=== PATIENT | female | born 1970 | race African-American/Black ===

== ENCOUNTER → 2018-05-14 | Emergency (ER) | payer SELFPAY ==
[~2018-05-14] MED LIST: Acetaminophen 325 MG TAB ONE; Escitalopram Oxalate 20 mg Tablet PO SCH; HALOPERIDOL 5MG TABLET PO SCH; Haloperidol 5 MG TAB PO SCH; Hydrochlorothiazide 25 MG TAB PO SCH; Lisinopril 10 MG TAB PO SCH; Loratadine 10 MG TAB PO SCH; Multivitamin W/ Minerals 1 TAB PO SCH
[2018-05-14 09:57] LABS: #Lymphocytes 1.3 thou/uL (1.20-3.40); #Monocytes 0.3 thou/uL (0.11-0.59); #Neutrophils 2.9 thou/uL (1.40-6.50); %Eosinophils 0.6 % (0.0-10.0); %Lymphocytes 28.2 % (21.0-51.0); %Monocytes 7.3 % (0.0-10.0); Hemoglobin 12.1 g/dL (12.0-16.0); Mean Corpuscular HGB CONC 30.3 g/dL (32.0-36.0); Mean Corpuscular Hemoglobin 22.9 pg (27.0-31.0); Mean Corpuscular Volume 75.7 fL (78.0-98.0); Mean Platelet Volume 10.5 fL (7.4-10.4); Platelet Count 280 thou/uL (130-400); RBC Distribution Width 15.3 % (11.5-14.5); Red Blood Cell (RBC) Count 5.26 mill/uL (4.20-5.40); White Blood Cell (WBC) Count 4.6 thou/uL (4.8-10.8)
[2018-05-14 10:14] LABS: ALT (SGPT) 14 U/L (8-55); AST (SGOT) 25 U/L (5-34); Acetaminophen Less than 6.0 mcg/mL (10.0-30.0); Albumin 4.2 g/dL (3.5-5.0); Alcohol Less than 10 mg/dL (Less than 10); Alkaline Phosphatase 119 U/L (40-150); Anion Gap 16 mmol/L (10-20); BUN (Urea Nitrogen) 11 mg/dL (7.0-18.7); Bilirubin, Total 0.8 mg/dL (0.2-1.2); CK (CPK) 337 U/L (29-168); Calc. Creatinine Clearance 0 mL/min (70-130); Calcium 10.1 mg/dL (7.8-10.44); Carbon Dioxide 23 mmol/L (22-29); Chloride 101 mmol/L (98-107); Estimated GFR-MDRD 71; Globulin 4.2 g/dL (2.4-3.5); Glucose 85 mg/dL (70-105); Potassium 4.3 mmol/L (3.5-5.1); Protein, Total 8.4 g/dL (6.0-8.3); Salicylate Less than 8.0 mg/dL (15.0-30.0); Sodium 136 mmol/L (136-145)
--- NOTE | 2018-05-14 11:36 | CT ---
CT HEAD NONCONTRAST: HISTORY: Altered mental status. FINDINGS: No comparison. There is no evidence of acute intracranial hemorrhage or infarct. The ventricles amie ear normal in size, shape, and position. There is no mass effect or shift of midline structures. The visualized paranasal sinuses remain well aerated. IMPRESSION: No acute intracranial abnormalities are demonstrated. POS: [facility]
[2018-05-14 12:44] LABS: Bilirubin Small (Negative); Blood, Urine Negative (Negative); Glucose, Urine (Dipstick) Negative (Negative); Leukocyte Small (Negative); Nitrite Negative (Negative); Protein, Urine (Dipstick) Negative (Neg-Trace); Urobilinogen 0.2 mg/dL (0.2-1.0); pH, Urine 5.5 (5.0-9.0)
[2018-05-14 12:52] LABS: Clarity Cloudy (Clear)
[2018-05-14 12:53] LABS: Specific Gravity, Urine 1.031 (1.002-1.036)
[2018-05-14 12:55] LABS: Amphetamine Not Detected (NotDetected); Barbiturates Screen Not Detected (NotDetected); Benzodiazepine Screen Not Detected (NotDetected); Cocaine Metabolite Screen Not Detected (NotDetected); Medtox Control Line Valid? VALID (VALID); Medtox Reader # READER 1; Methadone Not Detected (NotDetected); Methamphetamine Not Detected (NotDetected); Opiate Screen Not Detected (NotDetected); Oxycodone Screen Not Detected (NotDetected); Phencyclidine (PCP) Not Detected (NotDetected); THC/Cannabinoid Screen Not Detected (NotDetected); Tricyclic Screen Not Detected (NotDetected)
[2018-05-14 13:09] LABS: Bacteria/HPF 2+ HPF (None Seen)
[2018-05-14 13:10] LABS: Hyaline Casts/LPF 0-3 HYALINE CAST LPF (0-3 Hyaline); RBC/HPF 0-3 HPF (0-3)
[2018-05-14 19:56] LABS: Troponin I Less than 0.010 ng/mL (< 0.028)
[2018-05-17 07:54] LABS: #Lymphocytes 1.1 thou/uL (1.20-3.40); #Monocytes 0.3 thou/uL (0.11-0.59); #Neutrophils 1.3 thou/uL (1.40-6.50); %Basophils 0.5 % (0.0-1.0); %Lymphocytes 39.9 % (21.0-51.0); %Monocytes 11.3 % (0.0-10.0); %Neutrophils 47.3 % (42.0-75.0); Hemoglobin 11.4 g/dL (12.0-16.0); Mean Corpuscular HGB CONC 30.6 g/dL (32.0-36.0); Mean Corpuscular Volume 75.1 fL (78.0-98.0); Mean Platelet Volume 10.5 fL (7.4-10.4); Platelet Count 256 thou/uL (130-400); RBC Distribution Width 15.2 % (11.5-14.5); Red Blood Cell (RBC) Count 4.97 mill/uL (4.20-5.40); White Blood Cell (WBC) Count 2.7 thou/uL (4.8-10.8)
[2018-05-17 08:14] LABS: ALT (SGPT) 13 U/L (8-55); AST (SGOT) 23 U/L (5-34); Albumin 3.7 g/dL (3.5-5.0); Alkaline Phosphatase 106 U/L (40-150); Anion Gap 15 mmol/L (10-20); BUN (Urea Nitrogen) 7 mg/dL (7.0-18.7); Bilirubin, Total 0.8 mg/dL (0.2-1.2); Calc. Creatinine Clearance 0 mL/min (70-130); Calcium 9.7 mg/dL (7.8-10.44); Carbon Dioxide 24 mmol/L (22-29); Chloride 103 mmol/L (98-107); Estimated GFR-MDRD 71; Globulin 3.7 g/dL (2.4-3.5); Glucose 79 mg/dL (70-105); Potassium 3.8 mmol/L (3.5-5.1); Protein, Total 7.4 g/dL (6.0-8.3); Sodium 138 mmol/L (136-145)
--- NOTE | 2018-05-18 13:13 | EKG ---
Test Reason : Blood Pressure : / mmHG Vent. Rate : 067 BPM Atrial Rate : 067 BPM P-R Int : 154 ms QRS Dur : 082 ms QT Int : 422 ms P-R-T Axes : 042 064 046 degrees QTc Int : 445 ms Normal sinus rhythm Normal ECG Confirmed by LICO ASHER DO ([id number]), editor continuity and script GÉNESIS DENIS ([id number]) on 05/18/2018 1:12:57 PM Referred By: Confirmed By:LICO ASHER DO
[2018-05-20 15:01] LABS: #Lymphocytes 1.5 thou/uL (1.20-3.40); #Monocytes 0.4 thou/uL (0.11-0.59); #Neutrophils 1.9 thou/uL (1.40-6.50); %Eosinophils 0.6 % (0.0-10.0); %Lymphocytes 39.3 % (21.0-51.0); %Monocytes 10.3 % (0.0-10.0); %Neutrophils 48.7 % (42.0-75.0); Hemoglobin 10.8 g/dL (12.0-16.0); Mean Corpuscular HGB CONC 30.5 g/dL (32.0-36.0); Mean Corpuscular Volume 75.2 fL (78.0-98.0); Platelet Count 225 thou/uL (130-400); Red Blood Cell (RBC) Count 4.71 mill/uL (4.20-5.40); White Blood Cell (WBC) Count 3.9 thou/uL (4.8-10.8)
== END ==
LOC: ERS 09:19
DX: R45.851 Suicidal ideations (principal); E11.9 Type 2 diabetes mellitus without complications; I10 Essential (primary) hypertension; J45.909 Unspecified asthma, uncomplicated; F32.9 Major depressive disorder, single episode, unspecified; Z79.899 Other long term (current) drug therapy
CPT/HCPCS: 36415; 36416; 70450; 80053; 80306; 80307; 81003; 81015; 82550; 84443; 84484; 85025; 87086; 93005; 96360

== ENCOUNTER 2018-06-13 14:20 | Observation (INO) | payer SELFPAY ==
[2018-06-13 15:02] LABS: #Lymphocytes 1.4 thou/uL (1.20-3.40); #Monocytes 0.4 thou/uL (0.11-0.59); #Neutrophils 2.6 thou/uL (1.40-6.50); %Eosinophils 0.8 % (0.0-10.0); %Lymphocytes 32.6 % (21.0-51.0); %Monocytes 7.9 % (0.0-10.0); %Neutrophils 57.7 % (42.0-75.0); Hemoglobin 10.6 g/dL (12.0-16.0); Mean Corpuscular HGB CONC 31.1 g/dL (32.0-36.0); Mean Corpuscular Hemoglobin 23.1 pg (27.0-31.0); Mean Corpuscular Volume 74.1 fL (78.0-98.0); Mean Platelet Volume 10.3 fL (7.4-10.4); Platelet Count 254 thou/uL (130-400); RBC Distribution Width 14.8 % (11.5-14.5); Red Blood Cell (RBC) Count 4.58 mill/uL (4.20-5.40); White Blood Cell (WBC) Count 4.4 thou/uL (4.8-10.8)
--- NOTE | 2018-06-13 15:21 | RAD ---
SINGLE VIEW CHEST: Date: 06/13/18 COMPARISON: None. HISTORY: Chest pain. FINDINGS: Single view of the chest shows a normal sized cardiomediastinal silhouette. There is no evidence of c onsolidation, mass, or pleural effusion. The bones are unremarkable. IMPRESSION: No evidence of acute cardiopulmonary disease. POS: [facility]
[2018-06-13 15:22] LABS: ALT (SGPT) 14 U/L (8-55); AST (SGOT) 26 U/L (5-34); Albumin 3.9 g/dL (3.5-5.0); Alkaline Phosphatase 107 U/L (40-150); Anion Gap 15 mmol/L (10-20); BUN (Urea Nitrogen) 11 mg/dL (7.0-18.7); Bilirubin, Total 1.5 mg/dL (0.2-1.2); CK (CPK) 268 U/L (29-168); Calc. Creatinine Clearance 0 mL/min (70-130); Calcium 9.6 mg/dL (7.8-10.44); Carbon Dioxide 25 mmol/L (22-29); Chloride 101 mmol/L (98-107); Estimated GFR-MDRD 64; Globulin 3.9 g/dL (2.4-3.5); Glucose 65 mg/dL (70-105); Lipase 22 U/L (8-78); Potassium 4.3 mmol/L (3.5-5.1); Protein, Total 7.8 g/dL (6.0-8.3); Sodium 137 mmol/L (136-145)
[2018-06-13 15:24] LABS: Anisocytosis SLIGHT = 6-15 cells (100X) (0-5/hpf); Hypochromia SLIGHT = 6-15 cells (100X) (0-5/hpf); MDiff Complete? YES; Microcytosis SLIGHT = 6-15 cells (100X) (0-5/hpf); Ovalocytes SLIGHT = 2-5 cells (100X) (0-1/hpf); Platelet Morphology Comment Appears Adequate; Polychromasia SLIGHT = 2-3 cells (100X) (0-2/hpf)
[2018-06-13] MEDS ORDERED: Nitroglycerin 2% Ointment 1 INCH/1 GM Packet ONE (16:29)
[2018-06-13] MEDS ORDERED: Aspirin Chewable 81 MG TAB ONE (16:29)
[2018-06-13 17:31] VITALS: BMI 32.8
[2018-06-13 18:11] LABS: Cardiac Risk 3.8 (Less than 4.5)
[2018-06-13 18:14] LABS: Troponin I Less than 0.010 ng/mL (< 0.028)
[2018-06-13 21:22] LABS: Troponin I Less than 0.010 ng/mL (< 0.028)
[2018-06-13] MEDS ORDERED: Nitroglycerin 0.4 MG TAB (25 Tab Bottle) PO PRN (22:53)
[2018-06-13] MEDS ORDERED: Ondansetron PF 4 MG/2 ML Vial IVP PRN (22:53)
[2018-06-13] MEDS ORDERED: Ondansetron ODT 4 MG TAB PO PRN (22:53)
[2018-06-13] MEDS ORDERED: Acetaminophen 325 MG TAB PO PRN (22:53)
--- NOTE | 2018-06-14 03:01 | HP ---
PRIMARY CARE PHYSICIAN: None. CHIEF COMPLAINT: Chest pressure. HISTORY OF PRESENT ILLNESS: Ms. Domingo is a 47-year-old female with past medical history of hypertension and diabetes mellitus type 2, who had presented to [facility] for chest tightness lasting for the last 3 days. She reports pain is in the substernal area, however, denies any sort of radiation pain. She has denied any fever, chills, any headache, blurred vision, dizziness, any shortness of breath, abdominal pain, nausea, vomiting. She also denies any edema, any weakness, numbness, or tingling down her extremities. She also denies having a PCP at this time. During her initial workup, chest x-ray showed no evidence of acute cardiopulmonary process. Troponin were negative x3. Vital signs remained stable, and EKG showed normal sinus rhythm. It was determined that the patient be admitted under observation, placed on telemetry overnight, and stress test ordered to rule out ACS. REVIEW OF SYSTEMS: All other systems reviewed and found to be negative unless mentioned in HPI. PAST MEDICAL HISTORY: Diabetes mellitus type 2, hypertension, asthma, and glaucoma. PAST SURGICAL HISTORY: Cholecystectomy, section, and right foot surgery. PSYCHIATRIC HISTORY: Significant for depression with a recent psychiatric admission for a history of suicide attempts secondary to overdose. She had denied any suicidal or homicidal ideation at this time. SOCIAL HISTORY: She denies any alcohol, tobacco, or illicit drug use. The patient currently living at the [facility]. KNOWN ALLERGIES: No known drug allergies. HOME MEDICATIONS: 1. Citalopram 20 mg oral once daily. 2. Loratadine 10 mg oral once daily. 3. Hydrochlorothiazide 12.5 mg once daily. 4. Multivitamin oral once daily. 5. Lisinopril 10 mg oral once daily. 6. Haldol 15 mg oral twice daily. PHYSICAL EXAMINATION: VITAL SIGNS: BP 116/64, pulse 80, respirations 15, temperature 98.2 degrees Fahrenheit, O2 saturation 96% on room air. GENERAL: The patient is awake, alert, and oriented x3, in no acute distress noted. HEENT: Atraumatic, normocephalic. Pupils are round and reactive to light. Extraocular muscles intact. Moist mucous membranes noted. Oropharynx clear without exudates or erythema. NECK: Soft and supple. No JVD. No bruit. CARDIOVASCULAR: Positive S1 and S2. Regular rate and rhythm. No murmur auscultated. RESPIRATORY: Clear to auscultation bilaterally. No wheezes, rales, or rhonchi noted. ABDOMEN: Soft and nontender. Bowel sounds present. MUSCULOSKELETAL: Strength 5+ bilaterally upper and lower extremities. Moves all extremities equal. No edema noted. NEUROLOGIC: Cranial nerves II through XII grossly intact. No focal deficits noted. Speech intact and normal. Gait not assessed. SKIN: Warm, dry, and intact. No ulcerations. No lesions noted. PSYCHIATRIC: Good mood and affect. LABORATORY DATA: WBC 4.4, RBC 4.58, hemoglobin 10.6, platelet 254. Sodium 137, potassium 4.3, anion gap 15, BUN 11, creatinine 0.93, estimated GFR 64. Troponin less than 0.010 x3. BNP 17.5. Lipase 22. Triglycerides 52, total cholesterol 149, LDL 100, HDL 39. DIAGNOSTIC IMAGING: Single-view chest x-ray showed no evidence of acute cardiopulmonary disease. ASSESSMENT AND PLAN: 1. Chest pain, we will rule out cardiac etiology at this time. Stress test ordered and pending in the morning at this time. Serial troponins found to be less than 0.010 x3. The patient's chest pain resolved status post 500 mL of fluid bolus of normal saline along with 1 inch transdermal nitroglycerin paste. The patient will be placed on nitroglycerin and continued as needed. EKG showing normal sinus rhythm with no ST or T wave changes. Await results from stress test for further management. The patient will be placed on home medications at this time, and vital signs and other lab work will be monitored closely. 2. Hypertension. Continue on home regimen. 3. Diabetes mellitus type 2, the patient's glucose found to be 65. However, we will order Accu-Cheks along with starting an insulin sliding scale as needed. The patient will also be placed on a consistent carb diet. 4. History of depression. Continue home regimen at this time. 5. Code status. Full code. 6. Deep venous thrombosis and gastrointestinal prophylaxis. DISPOSITION: Pending further workup and clinical findings. Job ID: [id number]
[2018-06-14 07:23] LABS: #Lymphocytes 1.2 thou/uL (1.20-3.40); #Monocytes 0.3 thou/uL (0.11-0.59); #Neutrophils 1.9 thou/uL (1.40-6.50); %Basophils 1.3 % (0.0-1.0); %Eosinophils 1.1 % (0.0-10.0); %Lymphocytes 33.2 % (21.0-51.0); %Monocytes 9.5 % (0.0-10.0); %Neutrophils 54.9 % (42.0-75.0); Hemoglobin 10.1 g/dL (12.0-16.0); Mean Corpuscular HGB CONC 31.7 g/dL (32.0-36.0); Mean Corpuscular Hemoglobin 23.3 pg (27.0-31.0); Mean Corpuscular Volume 73.5 fL (78.0-98.0); Platelet Count 236 thou/uL (130-400); RBC Distribution Width 14.8 % (11.5-14.5); Red Blood Cell (RBC) Count 4.35 mill/uL (4.20-5.40); White Blood Cell (WBC) Count 3.5 thou/uL (4.8-10.8)
[2018-06-14 07:30] LABS: Anion Gap 11 mmol/L (10-20); BUN (Urea Nitrogen) 10 mg/dL (7.0-18.7); Calc. Creatinine Clearance 108 mL/min (70-130); Carbon Dioxide 25 mmol/L (22-29); Chloride 103 mmol/L (98-107); Estimated GFR-MDRD 82; Glucose 75 mg/dL (70-105); Potassium 4.1 mmol/L (3.5-5.1); Sodium 135 mmol/L (136-145)
[2018-06-14] MEDS ORDERED: Enoxaparin Sodium 40 MG/0.4 ML SYRINGE SC SCH (09:00)
[2018-06-14] MEDS ORDERED: Escitalopram Oxalate 20 mg Tablet PO SCH (09:00)
[2018-06-14] MEDS ORDERED: Haloperidol 5 MG TAB PO SCH (09:00)
[2018-06-14] MEDS ORDERED: Loratadine 10 MG TAB PO SCH (09:00)
[2018-06-14] MEDS ORDERED: Hydrochlorothiazide 25 MG TAB PO SCH (09:00)
[2018-06-14] MEDS ORDERED: Multivit, Therapeutic 1 TAB PO SCH (09:00)
[2018-06-14] MEDS ORDERED: Famotidine 20 MG TAB PO SCH (09:00)
[2018-06-14] MEDS ORDERED: Lisinopril 10 MG TAB PO SCH (09:00)
[2018-06-14] MEDS ORDERED: Regadenoson 0.4 MG/5 ML SYRINGE ONE (11:14)
--- NOTE | 2018-06-14 12:43 | PDOC.PN ---
- Subjective Encounter Start Date: 06/14/18 Encounter Start Time: 12:42 Subjective: Patient with mild pain in center of her chest, 6/10 and left shoulder. -: Has been ongoing for 4 days. Denies any trauma. No SOB or cough. - Objective Resuscitation Status - Order Detail: 06/13/18 22:53 Resuscitation Status Routine Co-Sign Provider: Resuscitation Status: FULL: Full Resuscitation Vital Signs & Weight: Vital Signs (12 hours) Temp Pulse Resp BP BP Pulse Ox 06/14/18 07:51 98.0 F 74 16 107/57 L 96 06/14/18 07:29 111/61 06/14/18 04:10 98 72 H 111/61 18 L Weight Weight 197 lb I&O: 06/13/18 06/14/18 06/15/18 06:59 06:59 06:59 Intake Total 50 Balance 50 Result Diagrams: 06/14/18 06:41 06/14/18 06:41 Dx/Plan - Plan * .
--- NOTE | 2018-06-14 15:56 | NM ---
STRESS ONLY MYOCARDIAL PERFUSION STUDY: 06/14/2018 HISTORY: Chest pain. RADIOPHARMACEUTICAL: Technetium 99m sestamibi 27.5 millicuries IV at stress. MEDICATIONS: Lexiscan 0.4 mg IV. FINDINGS: There is normal uptake of radiotracer seen throughout the left ventricular myocardium on the attenuat ion corrected SPECT images. No defect is seen to suggest an area of scarring or ischemia. The gated images demonstrate normal ventricular wall motion and wall thickening. Quantitative analysis shows no significant reversible defect, based on attenuation corrected images. There is normal ventricular wall motion and wall thickening. The calculated left ventricular ejection fraction is 75%. IMPRESSION: 1. Normal stress only myocardial perfusion study without evidence of a defect to suggest ischemia or scarring. 2. Normal left ventricular ejection fraction of 75%. POS: [facility]
[2018-06-14 16:26] VITALS: BP 93/53; TEMP 98.7
--- NOTE | 2018-06-15 15:55 | EKG ---
Test Reason : Blood Pressure : / mmHG Vent. Rate : 074 BPM Atrial Rate : 074 BPM P-R Int : 130 ms QRS Dur : 078 ms QT Int : 400 ms P-R-T Axes : 041 050 048 degrees QTc Int : 444 ms Normal sinus rhythm Normal ECG Confirmed by FRANCISCA CRESPO, KAT ([id number]), associate entertainment editor GÉNESIS DENIS ([id number]) on 06/15/2018 3:54:04 PM Referred By: Confirmed By:KAT ESPINOSA MD
== END 2018-06-14 17:10 | disposition home or self-care (01) ==
LOC: ERS 14:20 → 2SW 16:03
PROVIDERS: ADMIT Family Medicine; ATTEND Family Medicine
DX: R07.89 Other chest pain (principal); I10 Essential (primary) hypertension; E11.39 Type 2 diabetes mellitus with other diabetic ophthalmic complication; H42 Glaucoma in diseases classified elsewhere; F32.9 Major depressive disorder, single episode, unspecified; Z90.49 Acquired absence of other specified parts of digestive tract; Z79.899 Other long term (current) drug therapy; Z98.890 Other specified postprocedural states
CPT/HCPCS: 36415; 71045; 78452; 80048; 80053; 80061; 82550; 83690; 83880; 84484; 85025; 93005; 93017; 94760; 96360; 96372; A9500; G0378; J1650; J2785

== ENCOUNTER 2018-06-29 20:20 | Emergency (ER) | payer SELFPAY | END 2018-06-29 21:35 | disposition home or self-care (01) | LOC: ERS 20:20 | DX: M54.5 Low back pain (principal); E11.9 Type 2 diabetes mellitus without complications; I10 Essential (primary) hypertension; J45.909 Unspecified asthma, uncomplicated; F32.9 Major depressive disorder, single episode, unspecified; Z79.899 Other long term (current) drug therapy | CPT/HCPCS: 99283 ==